=== PATIENT | male | born 1940 | race Caucasian/White ===

== ENCOUNTER → 2018-10-24 | Outpatient (CLI) | payer MEDICARE ==
[~2018-10-24] MED LIST: APIX5TAB PO; METO25TA35 PO
== END | disposition home or self-care (01) ==
LOC: STAR 09:30
PROVIDERS: ATTEND Otolaryngology
DX: Z01.818 Encounter for other preprocedural examination (principal); J32.0 Chronic maxillary sinusitis; J32.2 Chronic ethmoidal sinusitis
CPT/HCPCS: 93005

== ENCOUNTER 2018-11-05 05:45 | Day surgery (SDC) | payer MEDICARE ==
[~2018-11-05] VITALS: Ht 174 cm; Wt 111.0 kg
[~2018-11-05 05:45] MED LIST changes: +ATOR10TA PO; +BUDE10.2 INH; +GUAI1TBM11 PO; +LEVA1.2543 INH
[2018-11-05] MEDS ORDERED: LACTATED RINGERS 1,000 ML IV SCH (06:33)
[2018-11-05 06:35] VITALS: BP 157/89
[2018-11-05] MEDS ORDERED: FLUORESCEIN SODIUM 500 MG/5 ML ONE (06:40)
[2018-11-05] MEDS ORDERED: LIDOCAINE 1%-EPI 1:100K, 20ML ONE (06:40)
[2018-11-05] MEDS ORDERED: OXYMETAZOLINE NASAL SPRAY 0.05%, 15ML ONE (06:40)
[2018-11-05] MEDS ORDERED: BACITRACIN 50,000 UNIT ONE (06:40)
[2018-11-05] MEDS ORDERED: BACITRACIN OINT 500U/GM, 15 GM ONE (06:40)
[2018-11-05] MEDS ORDERED: EPINEPHRINE TOPICAL SOLN 1 MG/ML, 30ML ONE (06:40)
[2018-11-05] MEDS ORDERED: LIDOCAINE-MPF 1%, 2ML INFIL ONE (07:00)
[2018-11-05] MEDS ORDERED: MOME13HF INH (07:10)
[2018-11-05] MEDS ORDERED: FENTANYL PF 250 MCG/5ML ONE (07:20)
[2018-11-05] MEDS ORDERED: MIDAZOLAM 1 MG/ML, 2ML ONE (07:20)
[2018-11-05] MEDS ORDERED: PROPOFOL 10 MG/ML, 20ML ONE ×3 (07:24→07:27)
[2018-11-05] MEDS ORDERED: SUCCINYLCHOLINE 20 MG/ML, 10ML ONE (07:24)
[2018-11-05] MEDS ORDERED: EPHEDRINE 50 MG/ML, 1ML ONE (07:27)
[2018-11-05] MEDS ORDERED: CEFAZOLIN 1,000 MG ONE ×2 (07:27)
[2018-11-05] MEDS ORDERED: OXYcodone IR 5MG TABLET PO ONE (07:30)
[2018-11-05] MEDS ORDERED: ACETAMINOPHEN 500 MG TABLET PO ONE (07:30)
[2018-11-05] MEDS ORDERED: FAMOTIDINE 20 MG TABLET PO ONE (07:30)
[2018-11-05] MEDS ORDERED: GLYCOPYRROLATE 0.2MG/1ML, 5ML ONE (07:37)
[2018-11-05] MEDS ORDERED: PHENYLEPHRINE 10 MG/ML ONE (07:37)
[2018-11-05] MEDS ORDERED: OXYcodone 5 MG/5 ML ORAL.SOL UDC PO PRN (08:00)
[2018-11-05] MEDS ORDERED: FENTANYL PF 100 MCG/2ML IV PRN (08:00)
[2018-11-05] MEDS ORDERED: PROMETHAZINE 25 MG/ML, 1ML IV PRN (08:00)
[2018-11-05] MEDS ORDERED: OXYcodone 5 MG/5 ML ORAL.SOL UDC ONE (09:19)
== END 2018-11-05 11:00 | disposition home or self-care (01) ==
LOC: OUT 05:45
PROVIDERS: ATTEND Otolaryngology
DX: J32.0 Chronic maxillary sinusitis (principal); J32.2 Chronic ethmoidal sinusitis; G47.33 Obstructive sleep apnea (adult) (pediatric); J44.9 Chronic obstructive pulmonary disease, unspecified; I48.91 Unspecified atrial fibrillation; Z72.89 Other problems related to lifestyle
CPT/HCPCS: 31255; 31256; 61782; 88304; 88311; J0330; J0690; J2250; J2370; J2704; J3010; J3490; J7120

== ENCOUNTER 2019-06-14 20:35 | Emergency (ER) | payer MEDICARE ==
[~2019-06-14] VITALS: Ht 175.3 cm; Wt 112.0 kg
[~2019-06-14 20:35] MED LIST changes: +MOME13HF INH
[2019-06-14 20:41] VITALS: BP 147/82
--- NOTE | 2019-06-14 21:00 | NUR ---
FIRST CONTACT WITH PT. PT C/O HEARING AID STUCK R EAR. PT'S AOX4. RESPS EVEN AND UNLABORED.
--- NOTE | 2019-06-14 21:19 | NUR ---
Patient given discharge instructions and they have confirmed that they understand the instructions. Patient ambulatory with steady gait.
== END 2019-06-14 21:21 | disposition home or self-care (01) ==
LOC: ED 21:10
DX: T16.1XXA Foreign body in right ear, initial encounter (principal); I10 Essential (primary) hypertension; X58.XXXA Exposure to other specified factors, initial encounter; Y93.89 Activity, other specified; Y92.89 Other specified places as the place of occurrence of the external cause; Y99.8 Other external cause status
CPT/HCPCS: 69200; 99284